=== PATIENT | male | born 1990 | race Caucasian/White ===

== ENCOUNTER 2017-06-10 14:40 | Emergency (ER) | payer MEDICAID ==
[2017-06-10] MEDS ORDERED: Levalbuterol HCl 1.25 MG/3 ML Neb NEB ONE (14:55)
[2017-06-10] MEDS ORDERED: Alum Hydrox/Mag Hydrox/Simeth 30 ML, Lidocaine 2% 15 ML PO ONE ×4 (15:21)
[2017-06-10 15:28] VITALS: BP 147/87
--- NOTE | 2017-06-10 15:28 | EDM.PDOC ---
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 He states he is not sure what it was but seemed to experience difficulty catching his breath. He states he went to bed last evening and awakened @ 0700 am with some sweating but was able to eat breakfast consisting of egg, sausage crousant he continued to feel difficulty taking a deep breath with some epigastric burning sensation. He states discomfort waxed and waned throughout the day and just 1 hour ago was eating cheeseburger and fries at restaurant and becam anxious with t he restrictive breathing feeling. He states affirms 13 years tobacco use as well as hypertension. Not taking medications. Onset: Unknown/Unsure Onset Date: 06/09/17 Onset Time: 06:00 Duration: Day(s): (2 ), Waxing/Waning Location: Reports: Chest Quality: Reports: Burning, Other (Tightness with difficulty getting deep breath. ) Improves with: Reports: Rest Worsens with: Reports: Eating, Movement Associated Symptoms: Reports: cough w sputum, Shortness of Breath. 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 [No Known Home Meds] 06/10/17 [History] Past Medical History Cardiovascular History: Reports: Hypertension Gastrointestinal History: Reports: Other (See Below) (Cholecystectomy) Psychiatric History: Reports: Bipolar - Past Surgical History GI Surgical History: Reports: Cholecystectomy Social & Family History - Tobacco Use Smoking Status *Q: Current Some Day Smoker Years of Tobacco use: 16 Packs/Tins Daily: 0.5 - Caffeine Use Caffeine Use: Reports: Energy Drinks, Soda - Alcohol Use Alcohol Use History: Yes Alcohol Use Frequency: Rarely - Recreational Drug Use Recreational Drug Use: Yes Drug Use in Last 12 Months: No - Living Situation & Occupation Occupation: Employed ED ROS GENERAL - Review of Systems Review Of Systems: See Below Constitutional: Reports: Fatigue, Night Sweats. Denies: Fever, Chills, Malaise , Weakness, Diaphoresis, Decreased Appetite, Weight Loss, Weight Gain HEENT: Reports: No Symptoms Respiratory: Reports: Shortness of Breath, Wheezing, Pleuritic Chest Pain, Cough , Sputum. Denies: Hemoptysis Cardiovascular: Reports: Chest Pain, Blood Pressure Problem. Denies: Edema, Lightheadedness, Orthopnea, Palpitations, PND, Syncope Endocrine: Reports: No Symptoms GI/Abdominal: Reports: Difficulty Swallowing, Nausea : Reports: No Symptoms Musculoskeletal: Reports: No Symptoms Skin: Reports: No Symptoms Neurological: Reports: No Symptoms Psychiatric: Reports: Other (Bipolar) Hematologic/Lymphatic: Reports: No Symptoms Immunologic: Reports: No Symptoms ED EXAM, GENERAL - Physical Exam Exam: See Below Free Text/Narrative:: Patient with episode of midsternal chest tightness and dysphagea last evening that radiated to his bilateral shoulders after taking male enhancement supplementation. He states he is not sure what it was but seemed to experience difficulty catching his breath. He states he went to bed last evening and awakened @ 0700 am with some sweating but was able to eat breakfast consisting of egg, sausage crousant he continued to feel difficulty taking a deep breath with some epigastric burning sensation. He states discomfort waxed and waned throughout the day and just 1 hour ago was eating cheeseburger and fries at restaurant and becam anxious with t he restrictive breathing feeling. He states affirms 13 years tobacco use as well as hypertension. Not taking medications. Exam Limited By: No Limitations General Appearance: Alert, WD/WN, No Apparent Distress Eye Exam: Bilateral Eye: EOMI, Normal Fundi, Normal Inspection, PERRL Ears: Normal External Exam, Normal Canal, Hearing Grossly Normal, Normal TMs Ear Exam: Bilateral Ear: Auricle Normal, TM normal Nose: Normal Inspection, Normal Mucosa, No Blood Throat/Mouth: Normal Inspection, Normal Lips, Normal Teeth, Normal Gums, Normal Oropharynx, Normal Voice, No Airway Compromise Head: Atraumatic, Normocephalic Neck: Normal Inspection, Supple, Non-Tender, Full Range of Motion Respiratory/Chest: Chest Non-Tender, Decreased Breath Sounds, Wheezing ( Inspiratory wheezing) Cardiovascular: Normal Peripheral Pulses, Regular Rate, Rhythm, No Edema, No Gallop, No JVD, No Murmur, No Rub Peripheral Pulses: 2+: Carotid (L), Carotid (R), Radial (L), Radial (R) GI/Abdominal: Normal Bowel Sounds, Soft, Non-Tender, No Organomegaly, No Distention (Male) Exam: Deferred Rectal (Males) Exam: Deferred Back Exam: Normal Inspection, Full Range of Motion Extremities: Normal Inspection, Normal Range of Motion, Non-Tender, No Pedal Edema, Normal Capillary Refill Neurological: Alert, Oriented, CN II-XII Intact, Normal Cognition, Normal Gait, Normal Reflexes, No Motor/Sensory Deficits Psychiatric: Normal Affect, Normal Mood Skin Exam: Warm, Dry, Intact, Normal Color, No Rash Lymphatic: No Adenopathy Course - Vital Signs Last Recorded V/S: Last Vital Signs Temp 36.6 C 06/10/17 14:42 Pulse 87 06/10/17 14:42 Resp 20 06/10/17 14:42 BP 147/87 H 06/10/17 15:10 Pulse Ox 98 06/10/17 14:42 - Orders/Labs/Meds Orders: Active Orders 24 hr Category Date Time Status EKG Documentation Completion [RC] STAT Care 06/10/17 15:19 Active RT Aerosol Therapy [RC] ASDIRECTED Care 06/10/17 14:56 Active Chest 2V [CR] Stat Exams 06/10/17 14:46 Taken Labs: Laboratory Tests 06/10/17 06/10/17 06/10/17 Range/Units 14:55 14:55 14:55 WBC 7.6 (5.0-10.0) 10^3/uL RBC 5.29 (4.50-6.00) 10^6/uL Hgb 15.7 (14.0-18.0) g/dL Hct 44.9 (40.0-54.0) % MCV 84.9 (82.0-94.0) fL MCH 29.7 (27.0-32.0) pg MCHC 35.0 (33.0-38.0) g/dL RDW Coeff of Yaya 13.4 (11.0-15.0) % Plt Count 247 (150-400) 10^3/uL Neut % (Auto) 63.7 (35-85) % Lymph % (Auto) 26.3 (10-55) % Wright % (Auto) 7.9 (0-16) % Eos % (Auto) 1.7 (0-5) % Baso % (Auto) 0.4 (0-3) % Neut # (Auto) 4.86 (1.80-7.00) 10^3/uL Lymph # (Auto) 2.01 (1.00-4.80) 10^3/uL Wright # (Auto) 0.60 (0.00-0.80) 10^3/uL Eos # (Auto) 0.13 (0.00-0.45) 10^3/uL Baso # (Auto) 0.03 10^3/uL D-Dimer, Quantitative < 0.19 (0.00-0.50) Sodium 141 (136-145) mEq/L Potassium 3.1 L (3.5-5.0) mEq/L Chloride 104 (98-106) mEq/L Carbon Dioxide 23 (21-32) mmol/L BUN 14 (7-18) mg/dL Creatinine 1.3 (0.7-1.3) mg/dL Est Cr Clr Drug Dosing 92.85 mL/min Estimated GFR (MDRD) > 60 (>=60) mL/min Glucose 115 H (75-99) mg/dL Calcium 9.0 (8.4-10.1) mg/dL Total Bilirubin 0.9 (0.0-1.0) mg/dL AST 35 (15-37) U/L ALT 54 (12-78) U/L Alkaline Phosphatase 92 (46-116) U/L Troponin I 0.018 (0.00-0.06) ng/mL C-Reactive Protein < 0.2 L (0.2-0.8) mg/dL Total Protein 7.1 (6.4-8.2) g/dL Albumin 4.0 (3.4-5.0) g/dL Urine Color (YELLOW) Urine Appearance (CLEAR) Urine pH (4.5-8.0) Ur Specific Melvin (1.003-1.020) Urine Protein (NEGATIVE) mg/dL Urine Glucose (UA) (NEGATIVE) mg/dL Urine Ketones (NEGATIVE) mg/dL Urine Occult Blood (NEGATIVE) Urine Nitrite (NEGATIVE) Urine Bilirubin (NEGATIVE) Urine Urobilinogen (0.2-1.0) EU/dL Ur Leukocyte Esterase (NEGATIVE) Urine RBC (0-5) /HPF Urine WBC (0-5) /HPF 06/10/17 Range/Units 15:40 WBC (5.0-10.0) 10^3/uL RBC (4.50-6.00) 10^6/uL Hgb (14.0-18.0) g/dL Hct (40.0-54.0) % MCV (82.0-94.0) fL MCH (27.0-32.0) pg MCHC (33.0-38.0) g/dL RDW Coeff of Yaya (11.0-15.0) % Plt Count (150-400) 10^3/uL Neut % (Auto) (35-85) % Lymph % (Auto) (10-55) % Wright % (Auto) (0-16) % Eos % (Auto) (0-5) % Baso % (Auto) (0-3) % Neut # (Auto) (1.80-7.00) 10^3/uL Lymph # (Auto) (1.00-4.80) 10^3/uL Wright # (Auto) (0.00-0.80) 10^3/uL Eos # (Auto) (0.00-0.45) 10^3/uL Baso # (Auto) 10^3/uL D-Dimer, Quantitative (0.00-0.50) Sodium (136-145) mEq/L Potassium (3.5-5.0) mEq/L Chloride (98-106) mEq/L Carbon Dioxide (21-32) mmol/L BUN (7-18) mg/dL Creatinine (0.7-1.3) mg/dL Est Cr Clr Drug Dosing mL/min Estimated GFR (MDRD) (>=60) mL/min Glucose (75-99) mg/dL Calcium (8.4-10.1) mg/dL Total Bilirubin (0.0-1.0) mg/dL AST (15-37) U/L ALT (12-78) U/L Alkaline Phosphatase (46-116) U/L Troponin I (0.00-0.06) ng/mL C-Reactive Protein (0.2-0.8) mg/dL Total Protein (6.4-8.2) g/dL Albumin (3.4-5.0) g/dL Urine Color Yellow (YELLOW) Urine Appearance Clear (CLEAR) Urine pH 5.5 (4.5-8.0) Ur Specific Melvin 1.030 H (1.003-1.020) Urine Protein 30 H (NEGATIVE) mg/dL Urine Glucose (UA) Negative (NEGATIVE) mg/dL Urine Ketones Negative (NEGATIVE) mg/dL Urine Occult Blood Negative (NEGATIVE) Urine Nitrite Negative (NEGATIVE) Urine Bilirubin Negative (NEGATIVE) Urine Urobilinogen 1.0 (0.2-1.0) EU/dL Ur Leukocyte Esterase Negative (NEGATIVE) Urine RBC Not seen (0-5) /HPF Urine WBC Not seen (0-5) /HPF Meds: Medications Discontinued Medications Generic Name Dose Route Start Last Admin Trade Name Freq PRN Reason Stop Dose Admin Azithromycin 500 mg 06/10/17 15:49 06/10/17 15:57 Zithromax PO 06/10/17 15:50 500 mg ONETIME ONE Administration Al Hydroxide/Mg Hydroxide 30 0 ml 06/10/17 15:21 06/10/17 15:27 ml/ Lidocaine HCl 15 ml PO 06/10/17 15:22 45 ml ONETIME ONE Administration Al Hydroxide/Mg Hydroxide 30 0 ml 06/10/17 15:21 06/10/17 15:27 ml/ Lidocaine HCl 15 ml PO 06/10/17 15:22 Not Given ONETIME ONE Levalbuterol HCl 1.25 mg 06/10/17 14:55 06/10/17 15:01 Xopenex NEB 06/10/17 14:56 1.25 mg ONETIME ONE Administration Prednisone 40 mg 06/10/17 15:55 06/10/17 15:58 Prednisone PO 06/10/17 15:56 40 mg DAILY ONE Administration Departure - Departure Time of Disposition: 16:19 Disposition: Home, Self-Care 01 Condition: Good Clinical Impression: Chronic bronchitis with acute exacerbation, Dyspnea on effort, Tobacco abuse - Discharge Information Instructions: Shortness of Breath, [id number], Smoking Cessation, Tips for Success, [id number], Chronic Obstructive Pulmonary Disease Exacerbation, Easy- to-Read Referrals: PCP,None [Primary Care Provider] - Forms: ED Department Discharge Additional Instructions: Medications as prescribed Cease Tobacco Use F/U with PCP. - Problem List & Annotations (1) Dyspnea on effort SNOMED Code(s): 66825435 Code(s): R06.09 - OTHER FORMS OF DYSPNEA Status: Acute Current Visit: Yes (2) Chronic bronchitis with acute exacerbation SNOMED Code(s): 866169917 Code(s): J20.9 - ACUTE BRONCHITIS, UNSPECIFIED; J42 - UNSPECIFIED CHRONIC BRONCHITIS Status: Acute Current Visit: Yes (3) Tobacco abuse SNOMED Code(s): 634197947, 132282440 Code(s): Z72.0 - TOBACCO USE Status: Acute Current Visit: Yes - Problem List Review Problem List Initiated/Reviewed/Updated: Yes - My Orders Last 24 Hours: My Active Orders 06/10/17 14:46 Chest 2V [CR] Stat 06/10/17 14:56 RT Aerosol Therapy [RC] ASDIRECTED 06/10/17 15:19 EKG Documentation Completion [RC] STAT - Assessment/Plan Last 24 Hours: My Active Orders 06/10/17 14:46 Chest 2V [CR] Stat 06/10/17 14:56 RT Aerosol Therapy [RC] ASDIRECTED 06/10/17 15:19 EKG Documentation Completion [RC] STAT Assessment:: Evaluation and SVN treatment completed with decreased restriction and inspiratory wheezing. GI cocktail with minimal results. Labs WNL-D-Dimer Negative- EKG WNL and Troponin WNL Chronic Bronchitis RAD Tobacco Use Anxiety Plan: Discharge to home with Medrol Dose Pack as Directed Z-Pack as directed Albuterol Inhaler 1 puff evry 4-6 hours prn wheezing. Cease tobacco Use. Avoid caffeine. Increase fluids and hydration. F/U in ER or PCP if S/S worsen. Patient verbalizes undersanding in attendance.
[2017-06-10 15:31] LABS: CHLORIDE,CL 104 mEq/L (98-106); SODIUM,NA 141 mEq/L (136-145)
[2017-06-10] MEDS ORDERED: Azithromycin 250 MG Tab PO ONE (15:49)
[2017-06-10] MEDS ORDERED: predniSONE 20 MG Tab PO ONE (15:55)
[2017-06-11] MEDS ORDERED: predniSONE 20 MG Tab PO SCH (12:00)
== END 2017-06-10 16:35 | disposition home or self-care (01) ==
LOC: MERGE 14:40 → CC.ED 14:40
DX: J20.9 Acute bronchitis, unspecified (principal); J42 Unspecified chronic bronchitis; I10 Essential (primary) hypertension; F31.9 Bipolar disorder, unspecified; F17.210 Nicotine dependence, cigarettes, uncomplicated; Z72.0 Tobacco use; Z90.49 Acquired absence of other specified parts of digestive tract
CPT/HCPCS: 36415; 71020; 80053; 81001; 84484; 85025; 85379; 86140; 93005; 94640; 99285; A9270